=== PATIENT | male | born 1975 ===

== ENCOUNTER 2018-04-30 18:43 | Emergency (ER) | payer MEDICAID ==
[2018-04-30 19:05] VITALS: TEMP 97.9
[2018-04-30] MEDS ORDERED: Alum-Mag Hydrox-Simethicone Susp (30 mL) PO STA (20:12)
--- NOTE | 2018-04-30 20:14 | ED PDOC ---
HPI: Abdomen Time Seen by Provider: 04/30/18 19:35 Chief Complaint (Nursing): Abdominal Pain History Per: Patient History/Exam Limitations: no limitations Onset/Duration Of Symptoms: Hrs Current Symptoms Are (Timing): Still Present Context: Food Location Of Pain/Discomfort: Epigastric Additional Complaint(s): Hx of possible H. Pylori (patient unsure, states he was treated with a "stomach " infection one year ago after endoscopy) presenting with epigastric burning pain, worsening after eating. States he's been taking motrin 800mg daily for the past 2 weeks for dental pain status post extraction. Denies fevers, nausea , vomiting, diarrhea, abnormal or black stools. States he feels better sitting up or when not eating. Past Medical History Reviewed: Historical Data, Nursing Documentation, Vital Signs Vital Signs: Last Vital Signs Temp 97.9 F 04/30/18 19:03 Pulse 62 04/30/18 22:30 Resp 18 04/30/18 22:30 BP 151/96 H 04/30/18 22:30 Pulse Ox 99 04/30/18 22:30 - Medical History PMH: Gastritis (H. Pylori?) - Surgical History Surgical History: No Surg Hx - Family History Family History: States: Unknown Family Hx - Home Medications Home Medications: Ambulatory Orders Medication Instructions Recorded Omeprazole 20 mg PO DAILY #30 capsule. 04/30/18 - Allergies Allergies/Adverse Reactions: Allergies Allergy/AdvReac Type Severity Reaction Status Date / Time No Known Allergies Allergy Verified 08/21/14 09:57 Review of Systems ROS Statement: Except As Marked, All Systems Reviewed And Found Negative Gastrointestinal: Positive for: Abdominal Pain Physical Exam - Reviewed Nursing Documentation Reviewed: Yes Vital Signs Reviewed: Yes - Physical Exam Appears: Positive for: Well, Non-toxic, No Acute Distress Head Exam: Positive for: ATRAUMATIC, NORMAL INSPECTION, NORMOCEPHALIC Skin: Positive for: Normal Color, Warm, DRY Eye Exam: Positive for: EOMI, Normal appearance, PERRL ENT: Positive for: Normal ENT Inspection Neck: Positive for: Normal, Painless ROM Cardiovascular/Chest: Positive for: Regular Rate, Rhythm Respiratory: Positive for: CNT, Normal Breath Sounds Gastrointestinal/Abdominal: Positive for: Bowel Sounds, Soft, Tenderness (Mild epigastric tenderness). Negative for: Organomegaly, Mass, Distended, Guarding, Rebound Back: Positive for: Normal Inspection Extremity: Positive for: Normal ROM Neurologic/Psych: Positive for: Alert, Oriented - ECG O2 Sat by Pulse Oximetry: 98 Pulse Ox Interpretation: Normal Medical Decision Making Medical Decision MakinPM A/P: Hx of possible H Pylori in the past presenting with burning epigastric pain after taking NSAID -patient very well appearing, normal vitals, mild tenderness on exam -most likely gastritis induced by prolonged NSAID use at high dosage, less likely pancreatiits, cholecystitis/cholelithiasis, not concerned for AAA, CA, or other cardio/cardiothoracic cause -will give GI cocktiil and re-eval 10PM -Patient reports some relief -Advised to continue with PPI -Advised to followup with GI and if no improvement or worsening or other concerning symptoms develop to return to ED -patient well appearing, tolerating PO upon discharge. Disposition - Clinical Impression Clinical Impression: Gastritis - Disposition Referrals: Ean Smith MD [Medical Doctor] - Disposition: Routine/Home Disposition Time: 04:53 Condition: IMPROVED Prescriptions: Omeprazole 20 mg PO DAILY #30 capsule. Instructions: Gastritis Forms: [facility] (Lao)
[2018-04-30] MEDS ORDERED: Alum-Mag Hydrox-Simethicone Susp (30 mL) ONE (21:03)
[2018-05-01 04:01] VITALS: BP 151/96; PULSE 62; RESP 18
[2018-05-01 04:53] VITALS: O2SAT 98
== END 2018-04-30 22:40 | disposition home or self-care (01) ==
LOC: H.ER 18:43
DX: K29.70 Gastritis, unspecified, without bleeding (principal)

== ENCOUNTER 2018-12-18 18:02 | Emergency (ER) | payer MEDICAID ==
[2018-12-18 18:08] VITALS: TEMP 99; O2SAT 98
[2018-12-18] MEDS ORDERED: Alum-Mag Hydrox-Simethicone Susp (30 mL) PO STA (19:02)
[2018-12-18] MEDS ORDERED: Sodium Chloride 0.9% 1,000 ML IV STA (19:02)
[2018-12-18 20:05] LABS: BASO # 0.1 K/uL (0.0-0.2); EOS # 0.4 K/uL (0.0-0.7); EOS % 4.9 % (0.0-4.0); HEMOGLOBIN 14.7 g/dL (12.0-18.0); LYMPH # 0.9 K/uL (1.0-4.3); LYMPH % 11.3 % (20.0-40.0); MEAN CELL VOLUME 90.7 fl (80.0-94.0); MEAN CORPUSCULAR HEMOGLOBIN 30.3 pg (27.0-31.0); MEAN CORPUSCULAR HGB CONC 33.4 g/dL (33.0-37.0); MEAN PLATELET VOLUME 8.8 fl (7.2-11.7); MONO # 0.9 K/uL (0.0-0.8); MONO % 11.1 % (0.0-10.0); NEUT # 5.6 K/uL (1.8-7.0); NEUT % 71.7 % (50.0-75.0); RBC 4.86 Mil/uL (4.40-5.90); RED CELL DISTRIBUTION WIDTH 13.4 % (11.5-14.5); WHITE BLOOD COUNT 7.9 K/uL (4.8-10.8)
--- NOTE | 2018-12-18 20:23 | ED PDOC ---
HPI: Influenza Time Seen by Provider: 12/18/18 18:27 Chief Complaint: Abdominal Pain Chief Complaint (Provider): Abdominal Pain History Per: Patient Exam Limitations: no limitations Have you had recent travel within the past 21 days to any of: No Onset/Duration Of Symptoms: Days (last night) Symptoms include: fever, bodyaches. denies: sore throat, cough, nasal congesti on, vomiting Sick Contacts (Context): None Additional complaint(s):: Jane Hunter is a 43 year old male with a past medical history of gastritis, who presents to the emergency department complaining of chills and subjective fever, associated with fatigue, body aches, and epigastric abdominal pain, onset last night. Patient states that he has had the abdominal pain before and was told he had gastritis. He has not seen his PMD in over a year and further reports that he has not had any sick contact or recent travel. Patient denies vomiting, diarrhea, cough, runny nose, or sore throat. PMD: Letha Roblero Past Medical History Reviewed: Historical Data, Nursing Documentation, Vital Signs Vital Signs: Last Vital Signs Temp 99.0 F 12/18/18 18:07 Pulse 90 12/18/18 18:07 Resp 16 12/18/18 18:07 BP 155/89 H 12/18/18 18:07 Pulse Ox 98 12/18/18 18:07 - Medical History PMH: Gastritis (H. Pylori?) - Surgical History Surgical History: No Surg Hx - Family History Family History: States: Diabetes - Home Medications Home Medications: Ambulatory Orders Medication Instructions Recorded Omeprazole 20 mg PO DAILY #30 capsule. 04/30/18 Acetaminophen [Tylenol Extra 1,000 mg PO Q6 PRN #100 tablet 12/18/18 Strength] Omeprazole Magnesium [Prilosec Otc] 20 mg PO DAILY #30 tcp 12/18/18 Oseltamivir Cap [Tamiflu] 75 mg PO BID #10 cap 12/18/18 - Allergies Allergies/Adverse Reactions: Allergies Allergy/AdvReac Type Severity Reaction Status Date / Time No Known Allergies Allergy Verified 12/18/18 18:07 Review of Systems ROS Statement: Except As Marked, All Systems Reviewed And Found Negative Constitutional: Positive for: Fever, Chills, Other (fatigue; body aches) ENT: Negative for: Nose Discharge, Throat Pain Respiratory: Negative for: Cough Gastrointestinal: Positive for: Abdominal Pain. Negative for: Vomiting, Diarrhea Physical Exam - Reviewed Nursing Documentation Reviewed: Yes Vital Signs Reviewed: Yes - Physical Exam Appears: Positive for: Well, No Acute Distress Head Exam: Positive for: ATRAUMATIC, NORMOCEPHALIC Skin: Positive for: Warm, Dry Eye Exam: Positive for: EOMI, PERRL ENT: Negative for: Pharyngeal Erythema, Tonsillar Exudate Neck: Positive for: Painless ROM, Supple Cardiovascular/Chest: Positive for: Regular Rate, Rhythm. Negative for: Murmur Respiratory: Positive for: Normal Breath Sounds. Negative for: Wheezing Gastrointestinal/Abdominal: Positive for: Bowel Sounds, Soft. Negative for: Tenderness, Mass, Distended, Guarding, Rebound Back: Positive for: Normal Inspection. Negative for: Muscle Spasm Extremity: Positive for: Normal ROM. Negative for: Deformity Lymphatic: Negative for: Adenopathy Neurologic/Psych: Positive for: Alert. Negative for: Motor/Sensory Deficits Medical Decision Making Medical Decision Making: Time: 1899 Impression: Flu like illness Plan: --CMP --Lipase --CBC with differential --Tylenol 975 mg PO --Aluminum Hydroxide/Magnesium 30 ml PO --Pepcid 40 mg PO --Toradol 15 mg IVP --Lidocaine 2% Viscous 10 ml PO --Sodium chloride 1,000 ml --IV insertion 830p Labs unremarkable. Pt feels better. DW pt findings and need for followup with GI. No acute conditions requiring further ER management Scribe Attestation: Documented by Sudheer Rendon, acting as a scribe for Gisela Osman MD. Provider Scribe Attestation: All medical record entries made by the Scribe were at my direction and personally dictated by me. I have reviewed the chart and agree that the record accurately reflects my personal performance of the history, physical exam, medical decision making, and the department course for this patient. I have also personally directed, reviewed, and agree with the discharge instructions and disposition. - Laboratory Results Result Diagrams: 12/18/18 19:43 12/18/18 19:43 - ECG O2 Sat by Pulse Oximetry: 98 (RA) Pulse Ox Interpretation: Normal Disposition - Clinical Impression Clinical Impression: Influenza-like symptoms, Gastritis - Disposition Referrals: Anton Roblero MD [Family Provider] - Disposition: Routine/Home Disposition Time: 20:30 Condition: IMPROVED Prescriptions: Acetaminophen [Tylenol Extra Strength] 1,000 mg PO Q6 PRN #100 tablet PRN Reason: FEVER OR PAIN Omeprazole Magnesium [Prilosec Otc] 20 mg PO DAILY #30 tcp Oseltamivir Cap [Tamiflu] 75 mg PO BID #10 cap Instructions: Gastritis (DC), Viral Syndrome (DC) Forms: [facility] ED School/Work Excuse
[2018-12-18 20:29] LABS: ALB/GLOB RATIO 1.1 (1.0-2.1); ALBUMIN 4.2 g/dL (3.5-5.0); ALT/SGPT 48 U/L (21-72); AST/SGOT 37 U/L (17-59); BLOOD UREA NITROGEN 16 mg/dl (9-20); CALCIUM 9.3 mg/dL (8.4-10.2); GFR NON-AFRICAN AMERICAN > 60; LIPASE 61 U/L (23-300)
[2018-12-18 21:16] VITALS: BP 134/53; PULSE 88; RESP 18
== END 2018-12-18 20:55 | disposition home or self-care (01) ==
LOC: H.ER 18:02
DX: K29.70 Gastritis, unspecified, without bleeding (principal); J11.1 Influenza due to unidentified influenza virus with other respiratory manifestations
CPT/HCPCS: 80053; 83690; 85025; 96374; 99285; J1885; J7030